=== PATIENT | female | born 1960 | race Hispanic/Latino ===

== ENCOUNTER 2020-08-09 05:53 | Emergency (ER) | payer BC ==
[2020-08-09] MEDS ORDERED: MECLIZINE HCL 25 MG TABLET ONE (06:06)
[2020-08-09 06:29] LABS: BASOPHILS % (AUTO) 0.4 % (0.0-5.0); EOSINOPHILS % (AUTO) 1.5 % (0.0-8.0); LYMPHOCYTES % (AUTO) 38.5 % (21.0-51.0); MEAN CORPUSCULAR HEMOGLOBIN 31.2 pg (27.0-33.0); MEAN CORPUSCULAR HGB CONC 32.9 g/dL (32.0-36.0); MEAN CORPUSCULAR VOLUME 94.8 fL (79-99); MONOCYTES % (AUTO) 8.7 % (3.0-13.0); NEUTROPHILS % (AUTO) 50.3 % (40.0-77.0); PLATELET COUNT (AUTO) 256 K/uL (130-400); RED BLOOD CELL COUNT(AUTO) 4.01 MIL/uL (4.00-5.50); RED CELL DISTRIBUTION WIDTH 13.1 % (11.0-15.5); WHITE BLOOD COUNT (AUTO) 7.2 K/uL (4.8-10.8)
[2020-08-09 06:43] LABS: ALBUMIN 3.8 g/dL (3.5-5.0); BILIRUBIN,TOTAL 0.3 mg/dL (0.2-1.0); CREATININE 0.8 mg/dL (0.5-1.5); POTASSIUM 3.9 mmol/L (3.5-5.1)
== END 2020-08-09 07:12 | disposition home or self-care (01) ==
LOC: EDH 05:53
DX: H81.10 Benign paroxysmal vertigo, unspecified ear (principal); R11.2 Nausea with vomiting, unspecified
CPT/HCPCS: 36415; 80053; 85025

== ENCOUNTER 2022-03-10 17:37 | Emergency (ER) | payer BC, OTHER ==
[~2022-03-10] VITALS: Ht 152.4 cm; Wt 59.0 kg
[2022-03-10 17:39] VITALS: BP 133/89
[2022-03-10] MEDS ORDERED: D-ME118S47 PO (18:11)
[2022-03-10] MEDS ORDERED: BENZ-39 PO (18:11)
[2022-03-10] MEDS ORDERED: OSEL75 PO (19:13)
[2022-03-10] MEDS ORDERED: BENZONATATE 100 MG CAPSULE PO SCH (20:00)
[2022-03-10] MEDS ORDERED: OSELTAMIVIR PHOSPHATE 75 MG CAP PO SCH (20:00)
== END 2022-03-10 19:58 | disposition home or self-care (01) ==
LOC: EDH 17:37
DX: J10.1 Influenza due to other identified influenza virus with other respiratory manifestations (principal); B34.9 Viral infection, unspecified; E78.00 Pure hypercholesterolemia, unspecified; Z20.822 Contact with and (suspected) exposure to COVID-19
CPT/HCPCS: 99283; 87635; 87880; 87804 ×2; C9803

== ENCOUNTER 2023-01-20 21:01 | Emergency (ER) | payer BC, OTHER ==
[~2023-01-20] VITALS: Ht 152.4 cm; Wt 59.0 kg
[~2023-01-20 21:01] MED LIST: BENZ-39 PO; BROM118S48 PO; OSEL75 PO
[2023-01-21 00:20] VITALS: BP 132/69; PULSE 80; RESP 16; O2SAT 98
== END 2023-01-21 00:44 | disposition home or self-care (01) ==
LOC: EDH 21:01
DX: S93.401A Sprain of unspecified ligament of right ankle, initial encounter (principal); E78.00 Pure hypercholesterolemia, unspecified; X50.1XXA Overexertion from prolonged static or awkward postures, initial encounter; Y93.45 Activity, cheerleading; Y92.89 Other specified places as the place of occurrence of the external cause; Y99.8 Other external cause status
CPT/HCPCS: 73610; 73630

== ENCOUNTER 2023-03-01 18:06 | Emergency (ER) | payer BC ==
[~2023-03-01] VITALS: Ht 152.4 cm; Wt 61.2 kg
[2023-03-01 18:09] VITALS: BP 132/81; PULSE 105; RESP 16
[2023-03-01 19:53] LABS: SARS-CoV-2, RNA, NAAT NEGATIVE SARS CoV-2 (NEGATIVE)
[2023-03-01 19:59] LABS: INFLUENZA TYPE A Negative For Type A (NEGATIVE); INFLUENZA TYPE B Negative For Type B (NEGATIVE)
[2023-03-01] MEDS ORDERED: DIPH-1242 PO (20:51)
[2023-03-01] MEDS ORDERED: DIPHENHYDRAMINE HCL 25 MG CAPSULE ONE (20:58)
[2023-03-01] MEDS ORDERED: DIPHENHYDRAMINE HCL 25 MG CAPSULE PO ONE (21:00)
== END 2023-03-01 21:06 | disposition home or self-care (01) ==
LOC: EDH 18:06
DX: H10.89 Other conjunctivitis (principal); H57.13 Ocular pain, bilateral; E78.00 Pure hypercholesterolemia, unspecified; Z20.822 Contact with and (suspected) exposure to COVID-19; Z79.899 Other long term (current) drug therapy
CPT/HCPCS: 99283; 87635; 87804 ×2; Q0163; C9803